=== PATIENT | male | born 1975 | race Caucasian/White ===

== ENCOUNTER 2022-09-14 08:09 | Inpatient (IN) | payer MEDICAID ==
[2022-09-14] VITALS (16 sets, daily range): BP systolic 105–153; BP diastolic 72–98
[~2022-09-14] VITALS: Ht 177.8 cm; Wt 93.9 kg
[2022-09-14] MEDS ORDERED: SODIUM CHLORIDE 0.9% 1,000 ML IV ONE ×3 (08:45→09:15)
[2022-09-14] MEDS ORDERED: INSULIN REGULAR (DRIP) 100 UNITS in SODIUM CHLORIDE 0.9% 99 ML IV ONE ×2 (09:15→10:45)
[2022-09-14] MEDS ORDERED: ONDANSETRON HCL 4MG/2ML INJ IV ONE (09:15)
[2022-09-14] MEDS ORDERED: FAMOTIDINE 20MG/2ML VIAL IV ONE (09:15)
[2022-09-14 09:51] LABS: BG BASE EXCESS -23.6 mmol/L (-2.0-2.0); BG CARBOXYHEMOGLOBIN 0.3 % (0.5-1.5); BG DEOXYHEMOGLOBIN 1.6 % (0.0-5.0); BG FRACTION INSPIRED OXYGEN 21; BG METHEMOGLOBIN 0.7 % (0.0-1.5); BG OXYGEN SATURATION 98.4 % (92.0-98.5); BG OXYHEMOGLOBIN 97.4 % (94.0-97.0); BG PCO2 9.8 mmHg (35.0-45.0); BG PO2 147.5 mmHg (75.0-100.0); BG SAMPLE SITE RIGHT BRACHIAL; BG VENT MODE ROOM AIR
[2022-09-14 10:15] LABS: HEMATOCRIT. 58.5 % (42.0-52.0); HEMOGLOBIN. 17.8 g/dL (14.0-18.0); MEAN CORPUSCULAR HEMOGLOBIN 30.1 pg (28.0-32.0); MEAN CORPUSCULAR VOLUME 98.8 fL (80.0-94.0); PLATELET 303 x1000/uL (130-400); RED BLOOD CELL COUNT 5.92 mill/uL (4.7-6.1)
[2022-09-14 10:23] LABS: CHLORIDE 89 mEq/L (98-107)
[2022-09-14 10:26] LABS: INR 1.1; PROTHROMBIN TIME 11.4 sec (9.6-11.0)
[2022-09-14 10:39] LABS: PLATELET ESTIMATE NORMAL
[2022-09-14] MEDS ORDERED: POTASSIUM CHLORIDE 20MEQ TABLET SR PO ONE (11:00)
[2022-09-14] MEDS ORDERED: KCL 10MEQ/50ML PREMIX 50 ML IV ONE (11:00)
[2022-09-14] MEDS ORDERED: MORPHINE SULFATE 4 MG/ML CPJ (NOT FOR IM USE) IV STA (11:16)
[2022-09-14] MEDS ORDERED: ONDANSETRON HCL 4MG/2ML INJ IV STA (11:16)
[2022-09-14 11:17] LABS: ETHANOL BLOOD < 10 mg/dL
[2022-09-14 12:09] LABS: T4 FREE 0.9 ng/dL (0.76-1.46)
[2022-09-14 12:15] LABS: BETA HYDROXYBUTYRATE 10.8 mMol/L (0.0-0.3)
[2022-09-14] MEDS ORDERED: DEXTROSE 50% WATER 50ML SYRINGE IV PRN ×2 (12:15)
[2022-09-14] MEDS ORDERED: IPRATROPIUM/ALBUTEROL 0.5-3(2.5)MG/3ML NEB NEB PRN (12:15)
[2022-09-14] MEDS ORDERED: ACETAMINOPHEN 325MG TABLET PO PRN (12:15)
[2022-09-14] MEDS ORDERED: MAGNESIUM/ALUMINUM HYDROXIDE/SIMETHICONE 30ML UDC PO PRN (12:15)
[2022-09-14] MEDS ORDERED: CLONIDINE 0.1MG TABLET PO PRN (12:15)
[2022-09-14] MEDS ORDERED: GUAIFENESIN 200MG/10ML SUGAR FREE UDC PO PRN (12:15)
[2022-09-14] MEDS ORDERED: DOCUSATE SODIUM 100MG CAPSULE PO PRN (12:15)
[2022-09-14] MEDS ORDERED: POTASSIUM CHLORIDE 20MEQ TABLET SR PO NR (12:30)
[2022-09-14] MEDS ORDERED: KCL 20MEQ/100ML PREMIX 100 ML IV NR (12:30)
[2022-09-14 12:37] LABS: CLARITY URINE CLEAR (CLEAR); COLOR URINE YELLOW (YELLOW); KETONES URINE 3+ (NEGATIVE); LEUKOCYTE ESTERASE URINE NEGATIVE (NEGATIVE); NITRITE URINE NEGATIVE (NEGATIVE); OCCULT BLOOD URINE 2+ (NEGATIVE); PROTEIN URINE 2+ (NEGATIVE); SPECIFIC GRAVITY URINE 1.029 (1.005-1.030); UROBILINOGEN URINE 0.2 E.U./dL (0.2-1.0)
[2022-09-14 12:59] LABS: *AMPHETAMINES SCREEN URINE NEGATIVE (NEGATIVE); *BARBITURATES SCREEN URINE NEGATIVE (NEGATIVE); *BENZODIAZEPINES SCREEN URINE NEGATIVE (NEGATIVE); *COCAINE SCREEN URINE NEGATIVE (NEGATIVE); CANNABINOID URINE SCREEN PRESUMTIVE POSITIVE (NEGATIVE); METHADONE URINE SCREEN NEGATIVE (NEGATIVE); OPIATES URINE SCREEN PRESUMTIVE POSITIVE (NEGATIVE); PHENCYCLIDINE URINE SCREEN NEGATIVE (NEGATIVE)
[2022-09-14] MEDS ORDERED: SODIUM CHL 0.45% + KCL 20MEQ/L 1,000 ML IV SCH (13:00)
[2022-09-14] MEDS ORDERED: SODIUM CHLORIDE 0.9% IV SCH ×2 (13:00→19:00)
[2022-09-14] MEDS ORDERED: INSULIN REGULAR IV SCH ×2 (13:00→19:00)
[2022-09-14] MEDS: BLOOD SUGAR DIAGNOSTIC STRIP TEST SCH ×11 (13:30→23:00)
[2022-09-14 13:57] LABS: FOLIC ACID (FOLATE) SERUM > 20.00 ng/mL (>5.38); VITAMIN B12 SERUM > 2000.0 pg/mL (211-911)
[2022-09-14] MEDS: ENOXAPARIN 40MG/0.4ML SYR SUBCUT SCH (14:00)
[2022-09-14 19:14] LABS: BG BASE EXCESS -18.6 mmol/L (-2.0-2.0); BG CARBOXYHEMOGLOBIN 0.3 % (0.5-1.5); BG DEOXYHEMOGLOBIN 1.9 % (0.0-5.0); BG FRACTION INSPIRED OXYGEN 21; BG HCO3 ACT 6.7 mmol/L (22.0-26.0); BG METHEMOGLOBIN 0.5 % (0.0-1.5); BG OXYGEN SATURATION 98.1 % (92.0-98.5); BG OXYHEMOGLOBIN 97.3 % (94.0-97.0); BG PCO2 17.8 mmHg (35.0-45.0); BG PH 7.194 (7.350-7.450); BG PO2 108.1 mmHg (75.0-100.0); BG SAMPLE SITE RIGHT BRACHIAL; BG TOTAL HEMOGLOBIN 18.4 g/dL (12.0-18.0); BG VENT MODE ROOM AIR
[2022-09-14 19:55] LABS: HEMATOCRIT. 53.9 % (42.0-52.0); HEMOGLOBIN. 17.7 g/dL (14.0-18.0); MEAN CORPUSCULAR HEMOGLOBIN 30.2 pg (28.0-32.0); MEAN CORPUSCULAR VOLUME 92.1 fL (80.0-94.0); MEAN PLATELET VOLUME 10.4 fl (7.4-10.4); PLATELET 221 x1000/uL (130-400); RED BLOOD CELL COUNT 5.85 mill/uL (4.7-6.1); RED CELL DISTRIBUTION WIDTH 14.1 % (11.6-14.6)
[2022-09-14] MEDS: INSULIN REGULAR (DRIP) 100 UNITS in SODIUM CHLORIDE 0.9% 99 ML IV SCH (20:15)
[2022-09-14] MEDS: SODIUM CHL 0.45% + KCL 20MEQ/L 1,000 ML IV SCH (20:21)
[2022-09-14 22:50] LABS: PLATELET ESTIMATE NORMAL
[2022-09-15] VITALS (74 sets, daily range): BP systolic 107–166; BP diastolic 51–111
[2022-09-15] MEDS: ONDANSETRON HCL 4MG/2ML INJ IV PRN ×3 (00:41→22:47)
[2022-09-15] MEDS: BLOOD SUGAR DIAGNOSTIC STRIP TEST SCH ×16 (01:00→23:11)
[2022-09-15] MEDS: ACETAMINOPHEN 325MG TABLET PO PRN ×2 (02:34→22:50)
[2022-09-15] MEDS ORDERED: BLOOD SUGAR DIAGNOSTIC STRIP TEST SCH (02:45)
[2022-09-15] MEDS: SODIUM CHL 0.45% + KCL 20MEQ/L 1,000 ML IV SCH (03:19)
[2022-09-15 04:36] LABS: HEMOGLOBIN. 16.7 g/dL (14.0-18.0); MEAN CORPUSCULAR HEMOGLOBIN 30.2 pg (28.0-32.0); MEAN CORPUSCULAR VOLUME 90.5 fL (80.0-94.0); MEAN PLATELET VOLUME 10.2 fl (7.4-10.4); PLATELET 206 x1000/uL (130-400); RED BLOOD CELL COUNT 5.52 mill/uL (4.7-6.1); RED CELL DISTRIBUTION WIDTH 13.9 % (11.6-14.6)
[2022-09-15 04:50] LABS: CHLORIDE 121 mEq/L (98-107)
[2022-09-15 04:55] LABS: PHOSPHORUS 1.9 mg/dL (2.5-4.9)
[2022-09-15] MEDS ORDERED: DEXT 5%/0.9% NACL 1,000 ML IV SCH (09:45)
[2022-09-15] MEDS ORDERED: POTASSIUM PHOS,M-BASIC-D-BASIC 30 MMOL in DEXT 5% WATER 500 ML IV NR (10:30)
[2022-09-15] MEDS: DEXT 5%/0.9% NACL 1,000 ML IV SCH ×2 (10:34→17:18)
[2022-09-15] MEDS ORDERED: DEXT 5%/0.45% NACL KCL 20MEQ/L 1,000 ML IV SCH (11:30)
[2022-09-15] MEDS: ENOXAPARIN 40MG/0.4ML SYR SUBCUT SCH (13:08)
[2022-09-15 13:33] LABS: PLATELET ESTIMATE NORMAL
[2022-09-15 14:17] LABS: BG BASE EXCESS -7.5 mmol/L (-2.0-2.0); BG CARBOXYHEMOGLOBIN 0.4 % (0.5-1.5); BG DEOXYHEMOGLOBIN 3.5 % (0.0-5.0); BG FRACTION INSPIRED OXYGEN 21; BG HCO3 ACT 15.9 mmol/L (22.0-26.0); BG METHEMOGLOBIN 0.3 % (0.0-1.5); BG OXYGEN SATURATION 96.5 % (92.0-98.5); BG OXYHEMOGLOBIN 95.8 % (94.0-97.0); BG PCO2 28.4 mmHg (35.0-45.0); BG PH 7.367 (7.350-7.450); BG PO2 77.6 mmHg (75.0-100.0); BG SAMPLE SITE RIGHT RADIAL; BG TOTAL HEMOGLOBIN 17.3 g/dL (12.0-18.0); BG VENT MODE ROOM AIR
[2022-09-15] MEDS: PANTOPRAZOLE SODIUM 40 MG/VIAL IV SCH ×2 (14:22→22:23)
[2022-09-15] MEDS: INSULIN REGULAR (DRIP) 100 UNITS in SODIUM CHLORIDE 0.9% 99 ML IV SCH (14:23)
[2022-09-15] MEDS ORDERED: CEFTRIAXONE 1,000 MG in DEXTROSE 5% WATER 50 ML IV SCH (15:00)
[2022-09-15 15:01] LABS: CHLORIDE 120 mEq/L (98-107)
[2022-09-15 16:30] LABS: AMYLASE 516 IU/L (25-115)
[2022-09-15] MEDS ORDERED: SODIUM PHOS,M-BASIC-D-BASIC 10 MM in DEXT 5% WATER 246.6667 ML IV SCH (17:00)
[2022-09-15] MEDS: SUCRALFATE 1 G/10 ML UDC PO SCH (17:17)
[2022-09-15] MEDS: ENOXAPARIN 30MG/0.3ML SYR SUBCUT SCH (22:24)
[2022-09-16] VITALS (56 sets, daily range): BP systolic 104–163; BP diastolic 55–109
[2022-09-16] LABS: CHLORIDE 118 mEq/L (98-107)
[2022-09-16 00:04] LABS: PHOSPHORUS 1.9 mg/dL (2.5-4.9)
[2022-09-16] MEDS: BLOOD SUGAR DIAGNOSTIC STRIP TEST SCH ×8 (00:04→21:00)
[2022-09-16] MEDS ORDERED: POTASSIUM CHLORIDE 20MEQ TABLET SR PO NR ×2 (00:45→05:50)
[2022-09-16] MEDS ORDERED: INSULIN GLARGINE 100 UNITS/ML SUBCUT SCH ×2 (00:45→22:00)
[2022-09-16] MEDS ORDERED: SODIUM CHLORIDE 0.45% 1,000 ML IV SCH (00:45)
[2022-09-16 05:07] LABS: BASOPHILS % 0.1 % (0.0-2.0); HEMATOCRIT. 45.1 % (42.0-52.0); HEMOGLOBIN. 15.1 g/dL (14.0-18.0); LYMPHOCYTES % 15.5 % (20.0-50.0); MEAN CORPUSCULAR HEMOGLOBIN 29.4 pg (28.0-32.0); MEAN CORPUSCULAR VOLUME 87.9 fL (80.0-94.0); MEAN PLATELET VOLUME 10.4 fl (7.4-10.4); MONOCYTES % 9.1 % (2.0-8.0); NEUTROPHILS % 75.3 % (40.0-76.0); PLATELET 162 x1000/uL (130-400); RED BLOOD CELL COUNT 5.13 mill/uL (4.7-6.1); RED CELL DISTRIBUTION WIDTH 14.1 % (11.6-14.6)
[2022-09-16 05:13] LABS: CHLORIDE 119 mEq/L (98-107)
[2022-09-16 05:24] LABS: PHOSPHORUS 2.3 mg/dL (2.5-4.9)
[2022-09-16] MEDS ORDERED: DEXTROSE 50% WATER 50ML SYRINGE IV PRN (05:30)
[2022-09-16] MEDS: INSULIN LISPRO 100 UNITS/ML SUBCUT SCH ×7 (06:58→21:42)
[2022-09-16] MEDS ORDERED: POTASSIUM PHOS,M-BASIC-D-BASIC 10 MMOL in DEXT 5% WATER 246.6667 ML IV NR (09:00)
[2022-09-16] MEDS: PANTOPRAZOLE SODIUM 40 MG/VIAL IV SCH ×2 (09:09→21:29)
[2022-09-16] MEDS: SUCRALFATE 1 G/10 ML UDC PO SCH ×2 (09:09→16:23)
[2022-09-16] MEDS: ENOXAPARIN 30MG/0.3ML SYR SUBCUT SCH (09:10)
[2022-09-16] MEDS: ACETAMINOPHEN 325MG TABLET PO PRN ×2 (15:31→21:30)
[2022-09-16 18:22] LABS: CHLORIDE 111 mEq/L (98-107)
[2022-09-16 18:27] LABS: PHOSPHORUS 1.4 mg/dL (2.5-4.9)
[2022-09-17] VITALS: BP 114/70
[2022-09-17 04:00] VITALS: BP 115/69
[2022-09-17] MEDS: BLOOD SUGAR DIAGNOSTIC STRIP TEST SCH (06:37)
[2022-09-17 08:00] VITALS: BP 126/88
[2022-09-17] MEDS ORDERED: ENOXAPARIN 40MG/0.4ML SYR SUBCUT SCH (09:00)
[2022-09-17] MEDS ORDERED: [UNRECOGNIZED DRUG - CODE] MC (09:35)
[2022-09-17] MEDS ORDERED: ATOR10TA MT ×2 (09:35→10:52)
[2022-09-17] MEDS ORDERED: SUCR1TAB30 MT (09:35)
[2022-09-17] MEDS ORDERED: BLOO-1482 MC (09:35)
[2022-09-17] MEDS ORDERED: INSLIS SUBCUT (09:35)
[2022-09-17] MEDS ORDERED: SYRI-218 SQ (09:35)
[2022-09-17] MEDS ORDERED: LANTUSUD SUBCUT (09:35)
[2022-09-17] MEDS ORDERED: OMEP20CA14 MT (09:35)
[2022-09-17] MEDS: ACETAMINOPHEN 325MG TABLET PO PRN (10:22)
[2022-09-17] MEDS: SUCRALFATE 1 G/10 ML UDC PO SCH (10:22)
[2022-09-17] MEDS: PANTOPRAZOLE SODIUM 40 MG/VIAL IV SCH (10:24)
[2022-09-17] MEDS: INSULIN LISPRO 100 UNITS/ML SUBCUT SCH (10:31)
[2022-09-17 12:00] VITALS: BP 124/77
[2022-09-17 12:46] LABS: BASOPHILS % 0.2 % (0.0-2.0); EOSINOPHILS % 0.5 % (0.0-5.0); HEMATOCRIT. 44.5 % (42.0-52.0); HEMOGLOBIN. 15.5 g/dL (14.0-18.0); LYMPHOCYTES % 19.7 % (20.0-50.0); MEAN CORPUSCULAR HEMOGLOBIN 30.1 pg (28.0-32.0); MEAN CORPUSCULAR VOLUME 86.4 fL (80.0-94.0); MEAN PLATELET VOLUME 9.7 fl (7.4-10.4); MONOCYTES % 6.7 % (2.0-8.0); NEUTROPHILS % 72.9 % (40.0-76.0); PLATELET 163 x1000/uL (130-400); RED BLOOD CELL COUNT 5.15 mill/uL (4.7-6.1); RED CELL DISTRIBUTION WIDTH 13.6 % (11.6-14.6)
[2022-09-17 12:53] LABS: CHLORIDE 106 mEq/L (98-107)
[2022-09-17] MEDS ORDERED: POTASSIUM CHLORIDE 20MEQ TABLET SR PO NR (13:00)
[2022-09-17] MEDS ORDERED: OMEP20CA14 PO (13:05)
[2022-09-17] MEDS ORDERED: SUCR1TAB PO (13:10)
[2022-09-17] MEDS ORDERED: INSU100V37 SQ (13:10)
[2022-09-17] MEDS ORDERED: INSU100V51 SUBCUT (13:10)
[2022-09-17 16:00] VITALS: BP 127/82
[2022-09-17 16:09] VITALS: BP 125/62
== END 2022-09-17 19:50 | disposition home or self-care (01) | DRG 420 ==
LOC: ER 08:38 → MICUSO 10:23 → EDBEDREQ 10:30 → EDBEDREQTM 10:30 → EDBEDREQ 10:50 → MICUSO 09-16 08:00 → 6EST 09-16 17:40
PROVIDERS: ADMIT Internal Medicine; ATTEND Internal Medicine
DX: E10.10 Type 1 diabetes mellitus with ketoacidosis without coma (principal); N17.0 Acute kidney failure with tubular necrosis; K85.90 Acute pancreatitis without necrosis or infection, unspecified; R65.10 Systemic inflammatory response syndrome (SIRS) of non-infectious origin without acute organ dysfunction; K75.81 Nonalcoholic steatohepatitis (NASH); E83.39 Other disorders of phosphorus metabolism; K29.00 Acute gastritis without bleeding; E66.9 Obesity, unspecified; E87.5 Hyperkalemia; E86.0 Dehydration; E87.6 Hypokalemia; E78.1 Pure hyperglyceridemia; E78.5 Hyperlipidemia, unspecified; R79.89 Other specified abnormal findings of blood chemistry; K57.90 Diverticulosis of intestine, part unspecified, without perforation or abscess without bleeding; Z68.29 Body mass index [BMI] 29.0-29.9, adult
CPT/HCPCS: 36415; 36600; 71045; 74176; 80048; 80053; 80061; 80305; 80320; 81003; 82010; 82150; 82375; 82607; 82746; 82805; 82962; 83036; 83540; 83550; 83605; 83735; 83880; 83930; 83935; 84100; 84145; 84439; 84443; 84484; 85025; 85379; 93005; 93970; 99291; C9113; J0696; J1650; J1815; J2270; J2405; J3480; J3490; J7030; J7042; J7050; J7060; G0480